=== PATIENT | female | born 1965 | race Caucasian/White ===

== ENCOUNTER → 2018-03-27 | Outpatient (CLI) | payer OTHER | END | disposition home or self-care (01) | LOC: MAMMO 10:24 | DX: Z12.31 Encounter for screening mammogram for malignant neoplasm of breast (principal); M85.88 Other specified disorders of bone density and structure, other site; F10.20 Alcohol dependence, uncomplicated; Z72.0 Tobacco use; Z90.710 Acquired absence of both cervix and uterus ==

== ENCOUNTER → 2020-12-27 | Outpatient (CLI) | payer OTHER | END | disposition home or self-care (01) | LOC: MRI 08:00 | PROVIDERS: ATTEND Nurse Practitioner Family | DX: I67.82 Cerebral ischemia (principal); J32.8 Other chronic sinusitis; F10.11 Alcohol abuse, in remission; R63.4 Abnormal weight loss; R56.9 Unspecified convulsions ==